=== PATIENT | female | born 1985 | race Caucasian/White ===

== ENCOUNTER 2018-12-16 23:11 | Emergency (ER) | payer OTHER ==
[2018-12-16 23:49] VITALS: BP 112/74; PULSE 69; TEMP 98.7; BMI 20.7
--- NOTE | 2018-12-17 00:25 | PDOC ---
*Physical Exam - Vital Signs Last Vital Signs Temp Pulse Resp BP Pulse Ox 98.7 F 69 17 112/74 100 12/16/18 23:15 12/16/18 23:15 12/16/18 23:15 12/16/18 23:15 12/16/18 23:15 Medical Decision Making - Medical Decision Making 12/17/18 00:25 Patient seen by the advanced practice provider under my direct supervision. Ancillary testing reviewed as necessary. I agree with plan as outlined by the advanced practice provider. Discharge - Discharge Information Problems reviewed: Yes Clinical Impression/Diagnosis: Avulsion of skin of finger without complication Qualifiers: Encounter type: initial encounter Qualified Code(s): S61.209A - Unspecified open wound of unspecified finger without damage to nail, initial encounter Condition: Improved Disposition: HOME - Additional Discharge Information Prescriptions: Cephalexin Monohydrate [Keflex -] 250 mg PO Q6H #28 capsule - Follow up/Referral - Patient Discharge Instructions Patient Printed Discharge Instructions: DI for Avulsion Laceration (Not Requiring Sutures) Additional Instructions: keep dressing on apply bacitracin to the area take cephalexin as prescribed follow up with your doctor in 2 days for a wound check. - Post Discharge Activity Work/Back to School Note: Back to Work
--- NOTE | 2018-12-17 00:42 | PDOC ---
History of Present Illness - General Chief Complaint: Laceration Stated Complaint: FINGER LAC Time Seen by Provider: 12/17/18 00:13 History Source: Patient - History of Present Illness Initial Comments: 12/17/18 00:43 33 year old reports that she cut her right index finger while cutting vegetables two days ago. patient had an appointment with firewood cutter yesterday nurse at the office advised patient to come to ER for evaluation/ wound check Last tetanus > 10 year sago Past History - Past Medical History Allergies/Adverse Reactions: Allergies Allergy/AdvReac Type Severity Reaction Status Date / Time No Known Allergies Allergy Verified 12/16/18 23:45 Home Medications: Ambulatory Orders Ibuprofen [Motrin -] 600 mg PO QID PRN #28 tablet 06/01/15 Cephalexin Monohydrate [Keflex -] 250 mg PO Q6H #28 capsule 12/17/18 Asthma: No Cancer: No Cardiac Disorders: No COPD: No Diabetes: No GI Disorders: (congenital single kidney) HTN: No Seizures: No Thyroid Disease: No - Immunization History Immunization Up to Date: Yes - Psycho Social/Smoking Cessation Hx Smoking History: Unknown if ever smoked Have you smoked in the past 12 months: No Information on smoking cessation initiated: No Hx Alcohol Use: No Drug/Substance Use Hx: No Substance Use Type: None Hx Substance Use Treatment: No Review of Systems - Review of Systems Able to Perform ROS?: Yes Is the patient limited Khmer proficient: No Integumentary: Yes: Other (finger laceration) *Physical Exam - Vital Signs Last Vital Signs Temp Pulse Resp BP Pulse Ox 98.7 F 69 17 112/74 100 12/16/18 23:15 12/16/18 23:15 12/16/18 23:15 12/16/18 23:15 12/16/18 23:15 - Physical Exam General Appearance: Yes: Appropriately Dressed Extremity: positive: Other (lateral/ distal aspect of the right index finger complete skin avulsion. no sign of infection. + distal sensation) Integumentary: positive: Normal Color, Dry, Warm Neurologic: positive: Fully Oriented, Alert ED Progress Note - Progress Note Progress Note: 12/17/18 01:01 A: skin avulsion P: tetanus empirically treat with cephalexin 12/17/18 01:01 outpatient pc wound check Discharge - Discharge Information Problems reviewed: Yes Clinical Impression/Diagnosis: Avulsion of skin of finger without complication Qualifiers: Encounter type: initial encounter Qualified Code(s): S61.209A - Unspecified open wound of unspecified finger without damage to nail, initial encounter Disposition: HOME - Additional Discharge Information Prescriptions: Cephalexin Monohydrate [Keflex -] 250 mg PO Q6H #28 capsule - Follow up/Referral - Patient Discharge Instructions Patient Printed Discharge Instructions: DI for Avulsion Laceration (Not Requiring Sutures) Additional Instructions: keep dressing on apply bacitracin to the area take cephalexin as prescribed follow up with your doctor in 2 days for a wound check. - Post Discharge Activity Work/Back to School Note: Back to Work
[2018-12-17] MEDS ORDERED: DIPHTH,PERTUSS(ACELL),TET VAC 0.5 ML VIAL IM ONE (00:43)
[2018-12-17] MEDS ORDERED: DIPHTH,PERTUSS(ACELL),TET 0.5 ML DISP.SYRIN IM ONE (01:14)
== END 2018-12-17 01:34 | disposition home or self-care (01) ==
LOC: JER 23:11
PROC: 3E0DX4Z Introduction of Serum, Toxoid and Vaccine into Mouth and Pharynx, External Approach (ICD-10-PCS; principal; 2018-12-16)
DX: S61.301A Unspecified open wound of left index finger with damage to nail, initial encounter (principal); W31.82XA Contact with other commercial machinery, initial encounter; Y93.G1 Activity, food preparation and clean up; Y92.511 Restaurant or cafe as the place of occurrence of the external cause; Y99.0 Civilian activity done for income or pay
CPT/HCPCS: 99282-25

== ENCOUNTER 2023-02-17 13:43 | Emergency (ER) | payer SELFPAY ==
[2023-02-17 13:50] VITALS: BMI 23.6
[2023-02-17] MEDS ORDERED: KETOROLAC TROMETHAMINE 30 MG/1 ML VIAL IM ONE (14:10)
[2023-02-17] MEDS ORDERED: KETOROLAC TROMETHAMINE 30 MG/1 ML VIAL ONE (14:14)
[2023-02-17] MEDS ORDERED: ALBUTEROL SO4 0.083% IH SOL 2.5 MG/3 ML VIAL.NEB. NEB ONE ×2 (14:21→14:25)
[2023-02-17] MEDS ORDERED: ALBUTEROL SO4 2.5/IPRATROPIUM 0.5 INH SOL 3 ML VIAL.NEB. NEB ONE (14:21)
[2023-02-17 15:30] VITALS: BP 132/74; PULSE 86; RESP 16; TEMP 98.6
== END 2023-02-17 15:32 | disposition home or self-care (01) ==
LOC: JERFT 13:43
PROC: 3E0233Z Introduction of Anti-inflammatory into Muscle, Percutaneous Approach (ICD-10-PCS; principal; 2023-02-17)
PROC: 3E0F7GC Introduction of Other Therapeutic Substance into Respiratory Tract, Via Natural or Artificial Opening (ICD-10-PCS; 2023-02-17)
DX: R09.89 Other specified symptoms and signs involving the circulatory and respiratory systems (principal); M54.6 Pain in thoracic spine; J20.9 Acute bronchitis, unspecified; J10.1 Influenza due to other identified influenza virus with other respiratory manifestations
CPT/HCPCS: 0241U-QW; 71046-TC-FY; 99284-25

== ENCOUNTER 2024-04-10 12:14 | Emergency (ER) | payer OTHER ==
[2024-04-10 12:24] VITALS: BP 124/76; PULSE 88; RESP 18; TEMP 98.3; BMI 25.3
[2024-04-10] MEDS ORDERED: IBUPROFEN 600 MG TABLET (FP) PO ONE (13:15)
[2024-04-10] MEDS: IBUPROFEN 600 MG TABLET (FP) PO ONE (13:17)
== END 2024-04-10 13:24 | disposition home or self-care (01) ==
LOC: JERFT 12:14
DX: S93.401A Sprain of unspecified ligament of right ankle, initial encounter (principal); X50.1XXA Overexertion from prolonged static or awkward postures, initial encounter
CPT/HCPCS: 73610-TC-RT-FY; 73630-TC-RT-FY; 99283-25